=== PATIENT | male | born 1985 | race African-American/Black ===

== ENCOUNTER 2019-05-12 15:48 | Inpatient (IN) | payer SELFPAY, OTHER ==
[2019-05-12 16:22] LABS: ADD MAN DIFF? NO
[2019-05-12] MEDS: SODIUM CHLORIDE 0.9% 1L BAG IV* (16:22)
[2019-05-12] MEDS: CEFEPIME 2GM/50 ML (PMX) 50 ML IVPB (16:24)
[2019-05-12] MEDS: ACETAMINOPHEN 325 MG TAB PO ×2 (16:24→23:03)
[2019-05-12 16:25] LABS: WHITE BLOOD COUNT 5.2 10^3/ul (4.8-10.8)
[2019-05-12 16:25] LABS: BASOPHILS % 0.4 % (0.0-2.0); EOSINOPHILS % 0.4 % (0.0-7.0); HEMATOCRIT 46.5 % (42.0-52.0); HEMOGLOBIN 14.5 g/dl (14.0-18.0); LYMPHOCYTES # 0.9 10^3/ul (0.8-2.9); LYMPHOCYTES % 16.7 % (15.0-51.0); MEAN CORPUSCULAR HGB CONC 31.2 g/dl (32.0-37.0); MEAN CORPUSCULAR VOLUME 73.8 fl (82.0-101.0); MEAN PLATELET VOLUME 10.4 fl (7.4-10.4); MONOCYTE # 0.3 10^3/ul (0.3-0.9); MONOCYTES % 6.6 % (0.0-11.0); NEUTROPHIL # 3.9 10^3/ul (1.6-7.5); NEUTROPHILS % 75.7 % (39.0-77.0); PLATELET COUNT 138 10^3/UL (140-415); POSITIVE DIFF @See below; RED CELL DISTRIBUTION WIDTH 14.6 % (11.5-14.5)
[2019-05-12 16:34] LABS: ADD UMIC YES; UR ASCORBIC ACID NEGATIVE (NEGATIVE); UR BILIRUBIN (Dip) NEGATIVE (NEGATIVE); UR BLOOD (Dip) 1+ mg/dL (NEGATIVE); UR CLARITY CLEAR (CLEAR); UR COLOR YELLOW (YELLOW); UR GLUCOSE (Dip) NEGATIVE (NEGATIVE); UR KETONES (Dip) NEGATIVE (NEGATIVE); UR LEUKOCYTE ESTERASE (Dip) NEGATIVE Leu/ul (NEGATIVE); UR NITRITE (Dip) NEGATIVE (NEGATIVE); UR RBC 3 /HPF (0-5); UR SPECIFIC GRAVITY (Dip) 1.014 (1.003-1.030); UR TOTAL PROTEIN (Dip) NEGATIVE (NEGATIVE); UR UROBILINOGEN (Dip) 2+ mg/dL (NEGATIVE); UR WBC 0 /HPF (0-5)
[2019-05-12 16:44] LABS: INR 1.01; PROTIME 13.4 Sec (11.9-14.9)
[2019-05-12] MEDS: VANCOMYCIN 1 GM (PMX) 250 ML IVPB (16:44)
[2019-05-12 16:45] LABS: PARTIAL THROMBOPLASTIN TIME 29.8 Sec (23.0-35.0)
[2019-05-12 16:48] LABS: ALANINE AMINOTRANSFERASE 128 IU/L (13-69); ALBUMIN 4.2 g/dl (3.3-4.9); ALBUMIN/GLOBULIN RATIO 1.13; ALKALINE PHOSPHATASE 94 IU/L (42-121); ANION GAP 11 (5-13); ASPARTATE AMINO TRANSFERASE 83 IU/L (15-46); BILIRUBIN,INDIRECT 1.9 mg/dl (0-1.1); BILIRUBIN,TOTAL 1.9 mg/dl (0.2-1.3); BLOOD UREA NITROGEN 9 mg/dl (7-20); CALCIUM 9.3 mg/dl (8.4-10.2); CARBON DIOXIDE 30 mmol/L (21-31); CHLORIDE 102 mmol/L (97-110); CREATININE 1.01 mg/dl (0.61-1.24); Estimated GFR > 60 mL/min (>60); GLUCOSE 94 mg/dl (70-220); POTASSIUM 3.9 mmol/L (3.5-5.1); SODIUM 143 mmol/L (135-144); TOTAL PROTEIN 7.9 g/dl (6.1-8.1)
[2019-05-12 16:59] LABS: TROPONIN-I 0.015 ng/ml (0.000-0.120)
[2019-05-12 17:26] LABS: HAAIG REFLEX REFLEX FILED
[2019-05-12 17:55] LABS: AMPHETAMINE/METHAMPHETAMINE Negative (NEGATIVE); BARBITURATES Negative (NEGATIVE); BENZODIAZEPINES Negative (NEGATIVE); CANNABINOIDS Negative (NEGATIVE); COCAINE Negative (NEGATIVE); OPIATES Negative (NEGATIVE)
[2019-05-12] MEDS: KETOROLAC 15 MG INJ IV (18:41)
[2019-05-12 18:58] LABS: LACTIC ACID 1.6 mmol/L (0.5-2.0)
[2019-05-12] MEDS ORDERED: ONDANSETRON 4 MG INJ IV ×2 (19:30→20:00)
[2019-05-12] MEDS ORDERED: ACETAMINOPHEN 325 MG TAB PO (19:30)
[2019-05-12 19:42] LABS: HEPATITIS B CORE ANTIBODY REACTIVE (NEGATIVE)
[2019-05-12 19:43] LABS: HEPATITIS C VIRAL ANTIBODY NEGATIVE (NEGATIVE)
[2019-05-12 19:48] LABS: HEPATITIS B SURFACE ANTIGEN POSITIVE (NEGATIVE)
[2019-05-12] MEDS ORDERED: NACL 0.9% 3 ML SYG IV (20:00)
[2019-05-12] MEDS ORDERED: IBUPROFEN 600 MG TAB PO (20:00)
[2019-05-12] MEDS ORDERED: LEVALBUTEROL (NEB) 1.25 MG/0.5 ML AMP HHN (20:30)
[2019-05-12] MEDS ORDERED: VANCOMYCIN IV PER PHARMACY XX (20:30)
[2019-05-12 20:34] LABS: C-REACTIVE PROTEIN 3.4 mg/dl (0.0-0.9)
[2019-05-12] MEDS: SOD CHLORIDE 0.9% 500 ML IV (20:41)
[2019-05-12 21:23] LABS: RETICULOCYTE RBC 5.36
[2019-05-12 21:23] LABS: RETICULOCYTE COUNT # 0.055 X10^6 (0.020-0.110)
[2019-05-12 21:54] LABS: LACTIC ACID 1.2 mmol/L (0.5-2.0)
[2019-05-12 22:25] LABS: ERYTHROCYTE SEDIMENTATION RATE 6 mm/Hr (0-15)
[2019-05-12] MEDS: VANCOMYCIN 750 MG (PMX) 250 ML IVPB (23:01)
[2019-05-12] MEDS: SOD CHLORIDE 0.9% 1,000 ML IV (23:01)
[2019-05-13] MEDS ORDERED: PIPER-TAZO 3.375 GM IV (PMX) 100 ML IVPB
[2019-05-13] MEDS: CEFEPIME 2GM/50 ML (PMX) 50 ML IVPB ×4 (01:18→22:00)
[2019-05-13 05:46] LABS: WHITE BLOOD COUNT 2.6 10^3/ul (4.8-10.8)
[2019-05-13 05:46] LABS: HEMATOCRIT 41.2 % (42.0-52.0); HEMOGLOBIN 12.7 g/dl (14.0-18.0); MEAN CORPUSCULAR HEMOGLOBIN 23.1 pg (29.0-33.0); MEAN CORPUSCULAR HGB CONC 30.8 g/dl (32.0-37.0); MEAN PLATELET VOLUME 11.5 fl (7.4-10.4); PLATELET COUNT 111 10^3/UL (140-415); POSITIVE DIFF @See below; RED BLOOD COUNT 5.49 10^6/ul (4.70-6.10); RED CELL DISTRIBUTION WIDTH 14.4 % (11.5-14.5)
[2019-05-13 06:12] LABS: HEMOGLOBIN A1C 5.4 % (0-5.9)
[2019-05-13 06:13] LABS: IRON 47 ug/dl (35-150)
[2019-05-13 06:17] LABS: ADD MAN DIFF? YES
[2019-05-13 06:21] LABS: % IRON SATURATION 17 % SAT (22-52); ALANINE AMINOTRANSFERASE 104 IU/L (13-69); ALBUMIN 3.2 g/dl (3.3-4.9); ALBUMIN/GLOBULIN RATIO 1.03; ALKALINE PHOSPHATASE 81 IU/L (42-121); ANION GAP 10 (5-13); ASPARTATE AMINO TRANSFERASE 56 IU/L (15-46); BILIRUBIN,INDIRECT 2.2 mg/dl (0-1.1); BILIRUBIN,TOTAL 2.2 mg/dl (0.2-1.3); BLOOD UREA NITROGEN 7 mg/dl (7-20); CALCIUM 8.6 mg/dl (8.4-10.2); CARBON DIOXIDE 25 mmol/L (21-31); CHLORIDE 111 mmol/L (97-110); CREATININE 0.82 mg/dl (0.61-1.24); Estimated GFR > 60 mL/min (>60); GLUCOSE 107 mg/dl (70-220); LACTATE DEHYDROGENASE 535 IU/L (313-618); MAGNESIUM 1.7 mg/dl (1.7-2.5); POTASSIUM 3.9 mmol/L (3.5-5.1); SODIUM 146 mmol/L (135-144); TOTAL PROTEIN 6.3 g/dl (6.1-8.1)
[2019-05-13 06:24] LABS: TOTAL IRON BINDING CAPACITY 273 ug/dl (241-421)
[2019-05-13 06:46] LABS: C-REACTIVE PROTEIN 4.8 mg/dl (0.0-0.9)
[2019-05-13 06:49] LABS: HEPATITIS B SURFACE ANTIGEN POSITIVE (NEGATIVE)
[2019-05-13 07:01] LABS: HEPATITIS B SURFACE ANTIBODY NEGATIVE (NEGATIVE)
[2019-05-13 07:01] LABS: HEPATITIS B CORE ANTIBODY REACTIVE (NEGATIVE)
[2019-05-13] MEDS: VANCOMYCIN 750 MG (PMX) 250 ML IVPB (07:05)
[2019-05-13 08:46] LABS: ERYTHROCYTE SEDIMENTATION RATE 6 mm/Hr (0-15)
[2019-05-13 09:22] LABS: ANISOCYTOSIS 1+ (0-0); BAND NEUTROPHILS #M 0.1 10^3/ul (0.0-0.6); BAND NEUTROPHILS % (M) 5 % (0-4); BASOPHILS % (M) 1 % (0-2); BURR CELLS 1+ (0-0); EOSINOPHILS % (M) 1 % (0-7); GIANT THROMBO% (M) 5 % (0-0); LYMPHOCYTES #M 0.8 10^3/ul (0.8-2.9); LYMPHOCYTES % (M) 34 % (15-51); MONOCYTE #M 0.3 10^3/ul (0.3-0.9); MONOCYTES % (M) 12 % (0-11); OVALOCYTES 1+ (0-0); PLATELET ESTIMATE DECREASED; POIKILOCYTOSIS 1+ (0-0); POLYCHROMASIA 1+ (0-0); REACTIVE LYMPHOCYTES% (M) 3 % (0-0); SEG NEUT #M 1.1 10^3/ul (1.6-7.5); SEGMENTED NEUTROPHILS (M) % 44 % (39-77); SMUDGE%M 12 % (0-0); TARGET CELLS 1+ (0-0)
[2019-05-13 10:36] LABS: PROCALCITONIN 1.42 ng/mL (0.00-0.10)
[2019-05-13] MEDS: SOD CHLORIDE 0.9% 1,000 ML IV ×2 (11:00→19:35)
[2019-05-13] MEDS: ACETAMINOPHEN 325 MG TAB PO (12:20)
[2019-05-13 15:00] LABS: HIV 1&2 ANTIBODY NEGATIVE (NEGATIVE)
[2019-05-13] MEDS: VANCOMYCIN 1 GM 250 ML IVPB ×2 (15:42→23:03)
[2019-05-13 15:56] LABS: RAPID PLASMA REAGIN NONREACTIVE (NR)
[2019-05-14] MEDS: HYDROCODONE/APAP (5/325) TAB PO (02:02)
[2019-05-14 05:36] LABS: HEPATITIS B SURFACE ANTIGEN REACTIVE (NON-REACTIVE)
[2019-05-14] MEDS: CEFEPIME 2GM/50 ML (PMX) 50 ML IVPB (05:41)
[2019-05-14 06:36] LABS: ABNORMAL IP MESSAGE 1; HEMATOCRIT 38.9 % (42.0-52.0); MEAN CORPUSCULAR HEMOGLOBIN 22.6 pg (29.0-33.0); MEAN CORPUSCULAR HGB CONC 30.8 g/dl (32.0-37.0); MEAN CORPUSCULAR VOLUME 73.3 fl (82.0-101.0); PLATELET COUNT 99 10^3/UL (140-415); POSITIVE DIFF @See below; RED BLOOD COUNT 5.31 10^6/ul (4.70-6.10)
[2019-05-14 06:55] LABS: ADD MAN DIFF? YES
[2019-05-14 06:56] LABS: ALANINE AMINOTRANSFERASE 80 IU/L (13-69); ALBUMIN 3.2 g/dl (3.3-4.9); ALBUMIN/GLOBULIN RATIO 1.03; ALKALINE PHOSPHATASE 79 IU/L (42-121); ANION GAP 7 (5-13); ASPARTATE AMINO TRANSFERASE 36 IU/L (15-46); BILIRUBIN,INDIRECT 1.5 mg/dl (0-1.1); BILIRUBIN,TOTAL 1.5 mg/dl (0.2-1.3); BLOOD UREA NITROGEN 6 mg/dl (7-20); CALCIUM 8.6 mg/dl (8.4-10.2); CARBON DIOXIDE 30 mmol/L (21-31); CHLORIDE 106 mmol/L (97-110); CREATININE 0.84 mg/dl (0.61-1.24); Estimated GFR > 60 mL/min (>60); GLUCOSE 101 mg/dl (70-220); POTASSIUM 4.3 mmol/L (3.5-5.1); SODIUM 143 mmol/L (135-144); TOTAL PROTEIN 6.3 g/dl (6.1-8.1)
[2019-05-14 07:02] LABS: VANCOMYCIN,TROUGH 10.1 ug/ml (10.0-20.0)
[2019-05-14] MEDS: VANCOMYCIN 1 GM 250 ML IVPB (07:09)
[2019-05-14 11:19] LABS: PROCALCITONIN 0.97 ng/mL (0.00-0.10)
[2019-05-14] MEDS: AMOXICILLIN/CLAV 875 MG TAB PO (11:43)
[2019-05-14] MEDS: DOCUSATE SODIUM 100 MG CAP PO (11:43)
[2019-05-14] MEDS: BISACODYL (EC) 5 MG TAB PO (11:43)
[2019-05-14 12:02] LABS: HSV 2 IGG ANTIBODY <0.90 index
[2019-05-15 06:31] LABS: HERPES SIMPLEX 1 DNA NOT DETECTED; HERPES SIMPLEX 2 DNA NOT DETECTED; HERPES SIMPLEX PCR SOURCE SERUM
[2019-05-15 17:31] LABS: WEST NILE VIRUS ANTIBODY (IGG) <1.30 index; WEST NILE VIRUS ANTIBODY (IGM) <0.90 index
== END 2019-05-14 12:05 | disposition home or self-care (01) | DRG 872 ==
LOC: E/R 15:48 → 2NE 19:29
DX: A41.9 Sepsis, unspecified organism (principal); B18.1 Chronic viral hepatitis B without delta-agent; D69.6 Thrombocytopenia, unspecified; D72.819 Decreased white blood cell count, unspecified
CPT/HCPCS: 36415; 71045; 76705; 80053; 80202; 80307; 81001; 82728; 83036; 83540; 83605; 83615; 83735; 84145; 84443; 84484; 85025; 85045; 85610; 85651; 85730; 86140; 86592; 86692; 86703; 86704; 86706; 86709; 86788; 86789; 86803; 87040-91; 87086; 87207; 87275; 87276; 87279; 87280; 87340; 87400; 87529; 87536; 93005; 96365; 96375; 99285-25